=== PATIENT | female | born 1955 | race Hispanic/Latino ===

== ENCOUNTER 2017-09-16 16:42 | Emergency (ER) | payer OTHER, SELFPAY ==
[2017-09-16] MEDS ORDERED: HYDROcodone/Acetaminophen 5/325 mg Tablet ONE (17:29)
[2017-09-16] MEDS ORDERED: Sodium Chloride 0.9% 1,000 ML ONE (18:14)
[2017-09-16 18:17] LABS: ALT (SGPT) 22 U/L (8-55); AST (SGOT) 18 U/L (5-34); Albumin 4.6 g/dL (3.5-5.0); Alkaline Phosphatase 147 U/L (40-150); Anion Gap 18 mmol/L (10-20); BUN (Urea Nitrogen) 17 mg/dL (9.8-20.1); Bilirubin, Total 0.4 mg/dL (0.2-1.2); Calc. Creatinine Clearance 0 mL/min (70-130); Calcium 10.8 mg/dL (7.8-10.44); Carbon Dioxide 26 mmol/L (22-29); Chloride 93 mmol/L (98-107); Estimated GFR-MDRD 53; Globulin 3.8 g/dL (2.4-3.5); Potassium 4.1 mmol/L (3.5-5.1); Protein, Total 8.4 g/dL (6.0-8.3); Sodium 133 mmol/L (136-145)
[2017-09-16 18:38] LABS: Glucose 622 mg/dL (70-105)
--- NOTE | 2017-09-16 18:51 | CT ---
CT BRAIN WITHOUT CONTRAST 09/16/17 HISTORY: Headache. COMPARISON: None. FINDINGS: No acute territorial infarct or hemorrhage. No midline shift or mass effect. Ventricular size and ext ra-axial CSF spaces are normal. Right maxillary sinus fluid. IMPRESSION: No acute intracranial abnormality. POS: [facility]
[2017-09-16] MEDS ORDERED: Insulin Regular 300 UNITS/3 ML VIAL ONE (18:53)
--- NOTE | 2017-09-16 18:55 | CT ---
CT FACE WITHOUT CONTRAST: 09/16/17 HISTORY: Injury. COMPARISON: None. FINDINGS: The frontal sinuses are hyperaerated. Mild mucosal thickening of the ethmoids. Asymmetric right worse than left maxillary sinus mucosal thickening, chronic. Moderate dental caries with multiple periapical erosions of the maxillary teeth. Temporomandibular joint alignment is normal. Mandible is intact. Odontoid process is intact. The occipital condyles are intact. Hyoid bone is intact. The visualized portions of the thyroid cartilage is intact. Soft tissues are unremarkable. Nasal bones are intact. Anterior nasal process of the maxilla is intact. The medial orbital garcia, la teral orbital garcia, zygoma, zygomatic arch were all intact. The pterygoid plates are intact. . IMPRESSION: Chronic sinusitis. No acute abnormality of the face. POS: [facility]
--- NOTE | 2017-09-16 18:58 | CT ---
CT NECK WITH CONTRAST 09/16/17 HISTORY: Injury. COMPARISON: None. FINDINGS: Lung apices are clear. There is large volume air within the left brachiocephalic vein and left internet designer al jugular vein, likely iatrogenic. The visualized portions of the aorta and pulmonary arteries are w ithin normal limits. No adenopathy. The visualized vasculature appears normal. No significant soft tissue swelling. No fracture or malalignment. Moderate degenerative disease at C5-6 with anterior and posterior disc osteophyte complexes as well a s asymmetric left sided facet arthropathy. Paraspinal soft tissues are unremarkable. IMPRESSION: No acute findings. POS: [facility]
== END 2017-09-16 19:52 | disposition home or self-care (01) ==
LOC: NAV ERS 16:42
DX: E11.65 Type 2 diabetes mellitus with hyperglycemia (principal); I10 Essential (primary) hypertension; E78.5 Hyperlipidemia, unspecified; F32.9 Major depressive disorder, single episode, unspecified; F17.210 Nicotine dependence, cigarettes, uncomplicated; Z79.899 Other long term (current) drug therapy; Z79.4 Long term (current) use of insulin; Y04.8XXA Assault by other bodily force, initial encounter
CPT/HCPCS: 36416; 70450; 70486; 70492; 80053; 96361; 96374; J1815; J7050

== ENCOUNTER 2019-01-14 09:57 | Emergency (ER) | payer SELFPAY ==
[2019-01-14 10:30] LABS: Bilirubin Negative (Negative); Blood, Urine Negative (Negative); Clarity Clear (Clear); Glucose, Urine (Dipstick) Negative (Negative); Leukocyte Negative (Negative); Nitrite Negative (Negative); Protein, Urine (Dipstick) Negative (Neg-Trace); Urobilinogen 0.2 mg/dL (Less than 2)
[2019-01-14] MEDS ORDERED: Sodium Chloride 0.9% 1,000 ML ONE (10:39)
[2019-01-14 10:49] LABS: #Basophils 0.1 thou/uL (0.0-0.2); #Eosinphils 0.3 thou/uL (0.0-0.7); #Lymphocytes 2.2 thou/uL (1.20-3.40); #Monocytes 0.7 thou/uL (0.11-0.59); #Neutrophils 4.6 thou/uL (1.40-6.50); %Basophils 0.9 % (0.0-1.0); %Eosinophils 3.4 % (0.0-10.0); %Lymphocytes 27.6 % (21.0-51.0); %Monocytes 8.6 % (0.0-10.0); %Neutrophils 59.5 % (42.0-75.0); Hemoglobin 12.5 g/dL (12.0-16.0); Mean Corpuscular HGB CONC 33.9 g/dL (32.0-36.0); Mean Corpuscular Hemoglobin 32.7 pg (27.0-31.0); Mean Corpuscular Volume 96.6 fL (78.0-98.0); Mean Platelet Volume 7.1 fL (7.4-10.4); Platelet Count 242 thou/uL (130-400); RBC Distribution Width 10.9 % (11.5-14.5); Red Blood Cell (RBC) Count 3.81 mill/uL (4.20-5.40); White Blood Cell (WBC) Count 7.8 thou/uL (4.8-10.8)
--- NOTE | 2019-01-14 11:07 | RAD ---
RADIOGRAPH CHEST 1 VIEW: DATE: 01/14/2019 HISTORY: 63-year-old female with chest pain FINDINGS: There are no airspace densities, pulmonary edema, pneumothorax, or cardiomegaly. The lateral costophr enic angles are sharp. IMPRESSION: No acute cardiopulmonary findings.
[2019-01-14 11:12] LABS: ALT (SGPT) 12 U/L (8-55); AST (SGOT) 16 U/L (5-34); Albumin 4.2 g/dL (3.4-4.8); Alkaline Phosphatase 88 U/L (40-150); Anion Gap 17 mmol/L (10-20); BUN (Urea Nitrogen) 7 mg/dL (9.8-20.1); Bilirubin, Total 0.4 mg/dL (0.2-1.2); Calc. Creatinine Clearance 0 mL/min (70-130); Calcium 9.4 mg/dL (7.8-10.44); Carbon Dioxide 22 mmol/L (23-31); Chloride 102 mmol/L (98-107); Estimated GFR-MDRD 80; Globulin 2.8 g/dL (2.4-3.5); Glucose 268 mg/dL (80-115); Lipase 39 U/L (8-78); Potassium 3.6 mmol/L (3.5-5.1); Sodium 137 mmol/L (136-145)
== END 2019-01-14 11:56 | disposition home or self-care (01) ==
LOC: NAV ERS 09:57
DX: R07.89 Other chest pain (principal); E86.0 Dehydration; R11.2 Nausea with vomiting, unspecified; R19.7 Diarrhea, unspecified; E11.9 Type 2 diabetes mellitus without complications; E78.5 Hyperlipidemia, unspecified; E78.00 Pure hypercholesterolemia, unspecified; I25.2 Old myocardial infarction; F32.9 Major depressive disorder, single episode, unspecified; F17.210 Nicotine dependence, cigarettes, uncomplicated; Z79.899 Other long term (current) drug therapy; Z79.84 Long term (current) use of oral hypoglycemic drugs
CPT/HCPCS: 71045; 80053; 81003; 83605; 83690; 83880; 84484; 85025; 93005; 96360; J7050

== ENCOUNTER 2020-01-08 14:12 | Emergency (ER) | payer OTHER, SELFPAY ==
[~2020-01-08 14:12] MED LIST: Iopamidol 370 76% 100 ML VIAL ONE
[2020-01-08 14:41] LABS: #Basophils 0.1 thou/uL (0.0-0.2); #Eosinphils 0.2 thou/uL (0.0-0.7); #Lymphocytes 2.9 thou/uL (1.20-3.40); #Neutrophils 6.9 thou/uL (1.40-6.50); %Basophils 0.8 % (0.0-1.0); %Lymphocytes 26.2 % (21.0-51.0); %Monocytes 8.9 % (0.0-10.0); %Neutrophils 62.1 % (42.0-75.0); Hemoglobin 13.2 g/dL (12.0-16.0); Mean Corpuscular HGB CONC 32.2 g/dL (32.0-36.0); Mean Corpuscular Hemoglobin 33.3 pg (27.0-31.0); Mean Platelet Volume 9.5 fL (7.4-10.4); Platelet Count 167 thou/uL (130-400); RBC Distribution Width 10.8 % (11.5-14.5); Red Blood Cell (RBC) Count 3.97 mill/uL (4.20-5.40)
[2020-01-08 15:04] LABS: ALT (SGPT) 26 U/L (8-55); AST (SGOT) 33 U/L (5-34); Albumin 4.4 g/dL (3.4-4.8); Alkaline Phosphatase 77 U/L (40-110); Anion Gap 16 mmol/L (10-20); BUN (Urea Nitrogen) 7 mg/dL (9.8-20.1); Bilirubin, Total 0.5 mg/dL (0.2-1.2); Calc. Creatinine Clearance 0 mL/min (70-130); Calcium 9.5 mg/dL (7.8-10.44); Carbon Dioxide 25 mmol/L (23-31); Chloride 98 mmol/L (98-107); Estimated GFR-MDRD 78; Globulin 3.3 g/dL (2.4-3.5); Glucose 316 mg/dL (80-115); Potassium 4.3 mmol/L (3.5-5.1); Protein, Total 7.7 g/dL (6.0-8.3); Sodium 135 mmol/L (136-145)
--- NOTE | 2020-01-08 15:11 | CT ---
CT BRAIN WITHOUT CONTRAST: HISTORY: Fall, hitting back of head with loss of consciousness Comparison 09/16/2017 FINDINGS: No evidence of acute infarct, hemorrhage, midline shift or abnormal extra-axial fluid collections is seen. The ventricular size is appropriate and the basilar cisterns are patent. The bony calvarium is intact. The mastoid air cells are well aerated. There is mucosal disease in the paranasal sinuses . There is a post left posterior parieto-occipital scalp contusion. IMPRESSION: No CT evidence of acute intracranial process.
[2020-01-08] MEDS ORDERED: Ibuprofen 200 MG TAB ONE (15:56)
--- NOTE | 2020-01-08 16:16 | CT ---
CT CHEST ABDOMEN AND PELVIS WITH IV CONTRAST AND CORONAL AND SAGITTAL REFORMATIONS OF THE THORACOLUMB AR SPINE: History: Fell at home with loss of consciousness. Right sided chest pain, abdominal pain, and back pa in. FINDINGS: No pneumothoraces, pulmonary contusions, or pleural effusions are noted. No hematoma or intimal flap in the aorta is seen to suggest transection. The liver, spleen, pancreas, adrenal glands, and kidneys are intact. The gallbladder and urinary blad lovely are also intact. No free air or free fluid is seen in the abdomen or pelvis. Uterus is present. N o acute fracture or subluxation is seen in the thoracolumbar spine. There is a fracture involving the anterior aspect of the right 7th, 8th, and 9th ribs. IMPRESSION: 1. Right rib fractures without pneumothorax. 2. No evidence of solid organ injury. POS: [facility]
== END 2020-01-08 16:20 | disposition home or self-care (01) ==
LOC: NAV ERS 14:12
DX: S22.41XA Multiple fractures of ribs, right side, initial encounter for closed fracture (principal); R51 Headache; E11.9 Type 2 diabetes mellitus without complications; E78.5 Hyperlipidemia, unspecified; E78.00 Pure hypercholesterolemia, unspecified; I25.2 Old myocardial infarction; Z79.4 Long term (current) use of insulin; Z79.899 Other long term (current) drug therapy; W01.10XA Fall on same level from slipping, tripping and stumbling with subsequent striking against unspecified object, initial encounter
CPT/HCPCS: 70450; 71260; 74177; 80053; 85025; 94760; 94799; Q9967

== ENCOUNTER 2022-12-26 20:09 | Emergency (ER) | payer MEDICARE, OTHER ==
[2022-12-26] MEDS ORDERED: traMADol HCl 50 MG TAB ONE (20:56)
== END 2022-12-26 22:08 | disposition home or self-care (01) ==
LOC: NAV ERS 20:09
DX: S39.011A Strain of muscle, fascia and tendon of abdomen, initial encounter (principal); S20.212A Contusion of left front wall of thorax, initial encounter; S70.02XA Contusion of left hip, initial encounter; S30.0XXA Contusion of lower back and pelvis, initial encounter; E11.9 Type 2 diabetes mellitus without complications; E78.00 Pure hypercholesterolemia, unspecified; I25.2 Old myocardial infarction; F17.210 Nicotine dependence, cigarettes, uncomplicated; W54.1XXA Struck by dog, initial encounter; Y92.009 Unspecified place in unspecified non-institutional (private) residence as the place of occurrence of the external cause; Z79.4 Long term (current) use of insulin; Z79.84 Long term (current) use of oral hypoglycemic drugs; Z79.899 Other long term (current) drug therapy
CPT/HCPCS: 72170

== ENCOUNTER 2023-09-18 18:56 | Emergency (ER) | payer MEDICARE, OTHER | END 2023-09-18 20:38 | disposition home or self-care (01) | LOC: NAV ERS 18:56 | DX: S93.402A Sprain of unspecified ligament of left ankle, initial encounter (principal); W01.0XXA Fall on same level from slipping, tripping and stumbling without subsequent striking against object, initial encounter; E11.9 Type 2 diabetes mellitus without complications; F17.210 Nicotine dependence, cigarettes, uncomplicated; E78.00 Pure hypercholesterolemia, unspecified; Z79.4 Long term (current) use of insulin; Z79.84 Long term (current) use of oral hypoglycemic drugs; Z79.82 Long term (current) use of aspirin; Z79.899 Other long term (current) drug therapy ==

== ENCOUNTER 2025-02-23 22:38 | Emergency (ER) | payer MEDICARE, OTHER | END 2025-02-24 00:55 | disposition home or self-care (01) | LOC: NAV ERS 22:38 | DX: J20.9 Acute bronchitis, unspecified (principal); R07.9 Chest pain, unspecified; E11.9 Type 2 diabetes mellitus without complications; E78.00 Pure hypercholesterolemia, unspecified; F17.210 Nicotine dependence, cigarettes, uncomplicated; Z79.84 Long term (current) use of oral hypoglycemic drugs; Z79.82 Long term (current) use of aspirin; Z79.4 Long term (current) use of insulin; Z79.899 Other long term (current) drug therapy | CPT/HCPCS: 71046; 93005 ==